=== PATIENT | male | born 1985 | race Caucasian/White ===

== ENCOUNTER 2016-10-12 18:33 | Emergency (ER) | payer BC ==
[~2016-10-12] VITALS: Ht 188 cm; Wt 94.0 kg
[2016-10-12 18:41] VITALS: BP 126/72; PULSE 84; RESP 16; TEMP 99.2; O2SAT 98
== END 2016-10-12 19:42 | disposition left against medical advice (07) ==
LOC: PHED 18:33
DX: M25.571 Pain in right ankle and joints of right foot (principal)
CPT/HCPCS: 99281